=== PATIENT | male | born 1975 | race Caucasian/White ===

== ENCOUNTER 2019-06-30 10:51 | Inpatient (IN) | payer SELFPAY ==
[~2019-06-30] VITALS: Ht 170.2 cm; Wt 79.8 kg
[2019-06-30 10:54] VITALS: Ht 170.2 cm; Wt 79.8 kg
[2019-06-30 11:29] LABS: ALBUMIN 4.3 g/dL (3.4-5.0); BILIRUBIN TOTAL 1.27 mg/dL (0.20-1.00); CALCIUM 8.6 mg/dL (8.5-10.1); CARBON DIOXIDE 27.1 mmol/L (21-32); CHLORIDE SERUM 103 mmol/L (98-107); CREATININE SERUM 0.7 mg/dL (0.7-1.3); GFR1 > 60 mL/min; GLUCOSE SERUM 128 mg/dL (74-106); POTASSIUM SERUM 3.6 mmol/L (3.5-5.1); SODIUM SERUM 142 mmol/L (136-145); TOTAL PROTEIN, SERUM 8.3 g/dL (6.4-8.2)
[2019-06-30 11:30] LABS: ALKALINE PHOSPHATASE 143 U/L (46-116); ALT/SGPT 267 U/L (16-63); AST/SGOT 485 U/L (15-37); LIPASE 230 IU/L (73-393)
[2019-06-30 11:32] LABS: BASOPHIL % 0.3 % (0-2); PLATELET COUNT 304 x10^3mcL (130-400); RED CELL DISTRIBUTION WIDTH 13.2 % (11.5-14.5)
[2019-06-30 13:50] LABS: T3 TOTAL 1.02 ng/mL
[2019-06-30 14:08] LABS: microscopic required? NO
[2019-06-30 14:32] LABS: CHOLESTEROL/HDL RATIO 2.9
[2019-06-30 14:42] LABS: UA SPECIFIC GRAVITY >=1.030 (1.005-1.035); urine erythrocyte NEGATIVE (NEGATIVE)
[2019-06-30 15:19] VITALS: BP 119/86
[2019-06-30 16:02] LABS: AMPHETAMINE QUAL UR NONE DETECTED (See below)
[2019-06-30 17:09] LABS: FREE T4 0.95 ng/dL (0.76-1.46); T4(THYROXINE) 8.3 ug/dL (4.7-13.3)
[2019-06-30 19:30] VITALS: BP 120/73
[2019-07-01 05:32] VITALS: BP 123/80
[2019-07-01 06:52] LABS: BASOPHIL % 0.3 % (0-2); PLATELET COUNT 191 x10^3mcL (130-400); RED CELL DISTRIBUTION WIDTH 14.3 % (11.5-14.5)
[2019-07-01 06:54] LABS: CALCIUM 7.9 mg/dL (8.5-10.1); CARBON DIOXIDE 27.9 mmol/L (21-32); CHLORIDE SERUM 107 mmol/L (98-107); CREATININE SERUM 0.8 mg/dL (0.7-1.3); GFR1 > 60 mL/min; GLUCOSE SERUM 101 mg/dL (74-106); POTASSIUM SERUM 3.3 mmol/L (3.5-5.1); SODIUM SERUM 144 mmol/L (136-145)
[2019-07-01 06:55] LABS: ALT/SGPT 401 U/L (16-63); AST/SGOT 402 U/L (15-37); BILIRUBIN DIRECT 2.03 mg/dL (0.0-0.2); BILIRUBIN TOTAL 3.54 mg/dL (0.20-1.00); MAGNESIUM 1.6 mg/dL (1.8-2.4); PHOSPHOROUS 2.2 mg/dL (2.5-4.9)
[2019-07-01 07:11] LABS: ALBUMIN 3.3 g/dL (3.4-5.0); ALKALINE PHOSPHATASE 119 U/L (46-116)
[2019-07-01 08:23] VITALS: BP 123/87
[2019-07-01 14:50] VITALS: BP 117/79
[2019-07-01 16:07] VITALS: BP 110/73
[2019-07-01 20:12] VITALS: BP 117/73
[2019-07-02 06:10] VITALS: BP 115/73
[2019-07-02 06:48] LABS: BASOPHIL % 0.3 % (0-2); PLATELET COUNT 173 x10^3mcL (130-400); RED CELL DISTRIBUTION WIDTH 14.1 % (11.5-14.5)
[2019-07-02 07:02] LABS: CARBON DIOXIDE 26.9 mmol/L (21-32); CHLORIDE SERUM 106 mmol/L (98-107); GLUCOSE SERUM 108 mg/dL (74-106); POTASSIUM SERUM 3.5 mmol/L (3.5-5.1); SODIUM SERUM 140 mmol/L (136-145)
[2019-07-02 07:03] LABS: ALBUMIN 2.9 g/dL (3.4-5.0); ALKALINE PHOSPHATASE 101 U/L (46-116); ALT/SGPT 310 U/L (16-63); AST/SGOT 160 U/L (15-37); BILIRUBIN DIRECT 0.55 mg/dL (0.0-0.2); BILIRUBIN TOTAL 1.3 mg/dL (0.20-1.00); CALCIUM 8.3 mg/dL (8.5-10.1); CREATININE SERUM 0.7 mg/dL (0.7-1.3); GFR1 > 60 mL/min; MAGNESIUM 1.9 mg/dL (1.8-2.4); PHOSPHOROUS 3.1 mg/dL (2.5-4.9); TOTAL PROTEIN, SERUM 6.6 g/dL (6.4-8.2)
[2019-07-02 08:10] VITALS: BP 111/75
[2019-07-02 12:48] VITALS: BP 112/76
[2019-07-02 17:41] VITALS: BP 120/82
[2019-07-02 21:15] VITALS: BP 131/86
[2019-07-03 05:29] VITALS: BP 104/71
[2019-07-03 06:32] LABS: BASOPHIL % 0.4 % (0-2); PLATELET COUNT 188 x10^3mcL (130-400); RED CELL DISTRIBUTION WIDTH 14.3 % (11.5-14.5)
[2019-07-03 06:56] LABS: CARBON DIOXIDE 29.8 mmol/L (21-32); CHLORIDE SERUM 104 mmol/L (98-107); CREATININE SERUM 0.7 mg/dL (0.7-1.3); GFR1 > 60 mL/min; GLUCOSE SERUM 84 mg/dL (74-106); POTASSIUM SERUM 3.6 mmol/L (3.5-5.1); SODIUM SERUM 141 mmol/L (136-145); TOTAL PROTEIN, SERUM 6.9 g/dL (6.4-8.2)
[2019-07-03 06:57] LABS: ALKALINE PHOSPHATASE 94 U/L (46-116); ALT/SGPT 211 U/L (16-63); AST/SGOT 70 U/L (15-37); BILIRUBIN DIRECT 0.37 mg/dL (0.0-0.2); BILIRUBIN TOTAL 0.92 mg/dL (0.20-1.00); CALCIUM 8.4 mg/dL (8.5-10.1); MAGNESIUM 1.9 mg/dL (1.8-2.4); PHOSPHOROUS 3.8 mg/dL (2.5-4.9)
[2019-07-03 09:10] VITALS: BP 117/80
[2019-07-03 12:32] VITALS: BP 115/73
[2019-07-03] MEDS ORDERED: IBUPROFEN400 MG PO (16:27)
[2019-07-03] MEDS ORDERED: AUGMENTIN1 TA1 PO (16:30)
[2019-07-03] MEDS ORDERED: LAC PO (16:33)
[2019-07-03 17:01] VITALS: BP 110/75
[2019-07-03 19:01] VITALS: BP 110/75
== END 2019-07-03 19:39 | disposition home or self-care (01) | DRG 419 ==
LOC: ED 10:51 → MU 13:20
PROVIDERS: Emergency Medicine; Student in an Organized Health Care Education/Training Program; Surgery; ADMIT Internal Medicine
PROC: BF131ZZ Fluoroscopy of Gallbladder and Bile Ducts using Low Osmolar Contrast (ICD-10-PCS; 2019-07-01)
PROC: 0FT44ZZ Resection of Gallbladder, Percutaneous Endoscopic Approach (ICD-10-PCS; principal; 2019-07-01 11:30)
DX: K80.62 Calculus of gallbladder and bile duct with acute cholecystitis without obstruction (principal); E87.6 Hypokalemia
CPT/HCPCS: 83880; 84439; 94150; C1887; G0378; J0295; J0330; J1170; J1580; J1885; J2001; J2175; J2250; J2270; J2405; J2543; J2704; J2710; J3010; J3480; J3490; J7030; J7120; Q0092; Q9967